=== PATIENT | female | born 1990 | race Caucasian/White ===

== ENCOUNTER 2018-09-05 08:33 | Inpatient (IN) | payer BC ==
[2018-09-05] MEDS ORDERED: Water For Irrigation,Sterile 1,000 ML Container IRR PRN (15:20)
[2018-09-05] MEDS ORDERED: Ondansetron 4 MG/2 ML SDV IV PRN (15:20)
[2018-09-05] MEDS ORDERED: Tranexamic Acid 1,000 MG in Sodium Chloride 0.9% 100 ML IV PRN (15:20)
[2018-09-05] MEDS ORDERED: Sodium Chloride 0.9% 10 ML Syringe FLUSH PRN (15:20)
[2018-09-05] MEDS ORDERED: Lidocaine 1% 50 ML MDV INJECT PRN (15:20)
[2018-09-05] MEDS ORDERED: Methylergonovine 0.2 MG/1 ML Amp IM PRN (15:20)
[2018-09-05] MEDS ORDERED: Sodium Chloride 0.9% 10 ML SDV IV PRN (15:20)
[2018-09-05] MEDS ORDERED: Ampicillin 2 GM in Sodium Chloride 0.9% 100 ML IV ONE (15:20)
[2018-09-05] MEDS ORDERED: Nalbuphine 10 MG/1 ML Vial IVPUSH PRN (15:20)
[2018-09-05] MEDS ORDERED: Carboprost Tromethamine 250 MCG/1 ML Amp IM PRN (15:20)
[2018-09-05] MEDS ORDERED: Butorphanol 1 MG/ML SDV IVPUSH PRN (15:20)
[2018-09-05] MEDS ORDERED: Sodium Chloride 0.9% 2.5 ML Syringe FLUSH PRN (15:20)
[2018-09-05] MEDS ORDERED: Terbutaline 1 MG/ML SDV SUBCUT PRN (15:20)
[2018-09-05] MEDS ORDERED: Misoprostol 200 MCG Tab PO PRN (15:20)
[2018-09-05] MEDS ORDERED: Oxytocin/0.9 % Sodium Chloride 30 UNIT/500 ML BAG IV SCH ×2 (15:30)
[2018-09-05] MEDS: Lactated Ringers 1,000 ML IV SCH ×2 (16:00→18:15)
[2018-09-05] MEDS: Misoprostol 25 MCG (1/4 of 100 MCG) Tab PO PRN ×2 (17:03→21:14)
[2018-09-05] MEDS: Misoprostol 25 MCG (1/4 of 100 MCG) Tab VAG PRN ×2 (17:04→21:15)
--- NOTE | 2018-09-05 17:29 | PCM.LDHP ---
L&D History of Present Illness - General Date of Service: 09/05/18 Admit Problem/Dx: Patient Status Order with Admit Dx/Problem 09/05/18 15:20 Patient Status [ADT] Routine Admission Diagnosis/Problem Admission Diagnosis/Problem - planned 09/05/18 17:23 28 yo EDC 09/04/2018 40 1/7wk O+, R-equivocal, GBS pos. IOL for term. Source of Information: Patient History Limitations: Reports: No Limitations - History of Present Illness Improves with: Reports: None Worsens with: Reports: None Associated Symptoms: Reports: N - Related Data Allergies/Adverse Reactions: Allergies Allergy/AdvReac Type Severity Reaction Status Date / Time No Known Allergies Allergy Verified 09/05/18 15:19 Social & Family History - Tobacco Use Smoking Status *Q: Former Smoker Used Tobacco, but Quit: No Tobacco Use Comment: Stopped December 2016 Second Hand Smoke Exposure: No - Caffeine Use Caffeine Use: Reports: Coffee - Recreational Drug Use Recreational Drug Use: No H&P Review of Systems - Review of Systems: Review Of Systems: See Below General: Reports: No Symptoms HEENT: Reports: No Symptoms Pulmonary: Reports: No Symptoms Cardiovascular: Reports: No Symptoms Gastrointestinal: Reports: No Symptoms Genitourinary: Reports: No Symptoms Musculoskeletal: Reports: No Symptoms Skin: Reports: No Symptoms Psychiatric: Reports: No Symptoms Neurological: Reports: No Symptoms Hematologic/Lymphatic: Reports: No Symptoms Immunologic: Reports: No Symptoms L&D Exam - Exam Exam: See Below - Vital Signs Weight: 134.717 kg - OB Specific Contraction Intensity: Mild Movement: Active Heart Tones: Present Heart Tones per Min: 145 Heart Rate (FHR) Variability: Moderate (6-25 bmp) Presentation: Vertex - Amador Score Amador Score Cervix Position: Posterior Amador Score Consistency: Medium Amador Score Effacement: 51-70% Amador Score Dilation: 1-2 cm Amador Score 's Station: -2 Amador Score Total: 5 - Exam General: Alert, Oriented, Cooperative, Mild Distress HEENT: Hearing Intact Lungs: Normal Respiratory Effort GI/Abdominal Exam: Soft, Non-Tender Rectal Exam: Deferred Genitourinary: Normal external exam, Normal bimanual exam, Cervical dilitation Back Exam: Normal Inspection, Full Range of Motion Extremities: Normal Inspection, Normal Range of Motion, Non-Tender, No Pedal Edema Skin: Warm Neurological: Cranial Nerves Intact, Reflexes Equal Bilateral, Strength Equal Bilateral, Normal Speech, Normal Tone, Sensation Intact Psychiatric: Alert, Normal Affect, Normal Mood - Patient Data Lab Results Last 24 hrs: Laboratory Results - last 24 hr 09/05/18 Range/Units 15:41 WBC 14.83 H (4.0-11.0) K/uL RBC 4.52 (4.30-5.90) M/uL Hgb 13.1 (12.0-16.0) g/dL Hct 39.3 (36.0-46.0) % MCV 86.9 (80.0-98.0) fL MCH 29.0 (27.0-32.0) pg MCHC 33.3 (31.0-37.0) g/dL RDW Std Deviation 42.7 (28.0-62.0) fl RDW Coeff of Claudia 14 (11.0-15.0) % Plt Count 228 (150-400) K/uL MPV 10.50 (7.40-12.00) fL Nucleated RBC % 0.0 /100WBC Nucleated RBCs # 0 K/uL Result Diagrams: 09/05/18 15:41 - Problem List (1) Supervision of normal IUP (intrauterine ) in primigravida SNOMED Code(s): 85172228, 551276327, 065983661, 266627922 ICD Code: Z34.00 - ENCNTR FOR SUPRVSN OF NORMAL FIRST , UNSP TRIMESTER Status: Acute Priority: High Current Visit: Yes Qualifiers: Trimester: third trimester Qualified Code(s): Z34.03 - Encounter for supervision of normal first , third trimester Problem List Initiated/Reviewed/Updated: Yes Orders Last 24hrs: Active Orders 24 hr Category Date Time Status Patient Status [ADT] Routine ADT 09/05/18 15:20 Active Communication Order [RC] ASDIRECTED Care 09/05/18 15:20 Active Communication Order [RC] ASDIRECTED Care 09/05/18 15:20 Active Communication Order [RC] ASDIRECTED Care 09/05/18 15:20 Active Heart Tones [RC] CONTINUOUS Care 09/05/18 15:20 Active Non Stress Test [RC] PER UNIT ROUTINE Care 09/05/18 15:20 Active May Shower [RC] ASDIRECTED Care 09/05/18 15:20 Active Notify Provider [RC] PRN Care 09/05/18 15:20 Active Notify Provider [RC] PRN Care 09/05/18 15:20 Active Notify Provider [RC] PRN Care 09/05/18 15:20 Active Notify Provider [RC] STAT Care 09/05/18 15:20 Active Up ad Steph [RC] ASDIRECTED Care 09/05/18 15:20 Active Vaginal Exam [RC] PRN Care 09/05/18 15:20 Active Vital Signs [RC] PER UNIT ROUTINE Care 09/05/18 15:20 Active Regular Diet [DIET] Diet 09/05/18 Dinner Active TYPE AND SCREEN [BBK] Routine Lab 09/05/18 15:41 Received Butorphanol [Stadol] Med 09/05/18 15:20 Active 1 mg IVPUSH Q1H PRN Carboprost Tromethamine [Hemabate DS] Med 09/05/18 15:20 Active 250 mcg IM ASDIRECTED PRN Lactated Ringers [Ringers, Lactated] 1,000 ml Med 09/05/18 15:30 Active IV ASDIRECTED Lidocaine 1% [Xylocaine 1%] Med 09/05/18 15:20 Active 50 ml INJECT ONETIME PRN Methylergonovine [Methergine] Med 09/05/18 15:20 Active 0.2 mg IM ASDIRECTED PRN Nalbuphine [Nubain] Med 09/05/18 15:20 Active 10 mg IVPUSH Q1H PRN Ondansetron [Zofran] Med 09/05/18 15:20 Active 4 mg IV Q4H PRN Oxytocin/0.9 % Sodium Chloride [Oxytocin 30 Unit/500 ML Med 09/05/18 15:30 Active -NS] 30 unit in 500 ml IV TITRATE Oxytocin/0.9 % Sodium Chloride [Oxytocin 30 Unit/500 ML Med 09/05/18 15:30 Active -NS] 30 unit in 500 ml IV TITRATE Sodium Chloride 0.9% [Normal Saline] Med 09/05/18 15:20 Active 10 ml IV ASDIRECTED PRN Sodium Chloride 0.9% [Saline Flush] Med 09/05/18 15:20 Active 10 ml FLUSH ASDIRECTED PRN Sodium Chloride 0.9% [Saline Flush] Med 09/05/18 15:20 Active 2.5 ml FLUSH ASDIRECTED PRN Terbutaline [Brethine] Med 09/05/18 15:20 Active 0.25 mg SUBCUT ASDIRECTED PRN Tranexamic Acid [Cyklokapron] 1,000 mg Med 09/05/18 15:20 Active Sodium Chloride 0.9% [Normal Saline] 100 ml IV ONETIME Water For Irrigation,Sterile [Sterile Water for Med 09/05/18 15:20 Active Irrigation] 1,000 ml IRR ASDIRECTED PRN miSOPROStol [Cytotec] Med 09/05/18 15:20 Active 200 mcg PO ONETIME PRN miSOPROStol [Cytotec] Med 09/05/18 15:20 Active 25 mcg PO Q4HR PRN miSOPROStol [Cytotec] Med 09/05/18 15:20 Active 25 mcg VAG Q4H PRN Scalp Electrode [WOMSER] Per Unit Routine Oth 09/05/18 15:20 Ordered Medication Administration Instruction [OM.PC] Q3H Oth 09/05/18 15:30 Ordered Peripheral IV Insertion Adult [OM.PC] Routine Oth 09/05/18 15:20 Ordered Resuscitation Status Routine Resus Stat 09/05/18 15:20 Ordered Medication Orders Butorphanol Tartrate (Stadol) 1 mg IVPUSH Q1H PRN PRN Reason: Pain Carboprost Tromethamine (Hemabate Ds) 250 mcg IM ASDIRECTED PRN PRN Reason: Post Hemorrhage Lactated Ringer's (Ringers, Lactated) 1,000 mls @ 150 mls/hr IV ASDIRECTED [facility] Last Admin: 09/05/18 16:00 Dose: 150 mls/hr Oxytocin/Sodium Chloride (Oxytocin 30 Unit/500 Ml-Ns) 30 unit in 500 mls @ 500 mls/hr IV TITRATE [facility] Oxytocin/Sodium Chloride (Oxytocin 30 Unit/500 Ml-Ns) 30 unit in 500 mls @ 2 mls/hr IV TITRATE [facility]; Protocol Tranexamic Acid 1,000 mg/ (Sodium Chloride) 110 mls @ 660 mls/hr IV ONETIME PRN PRN Reason: Bleeding Lidocaine HCl (Xylocaine 1%) 50 ml INJECT ONETIME PRN PRN Reason: Laceration repair Methylergonovine Maleate (Methergine) 0.2 mg IM ASDIRECTED PRN PRN Reason: Post Hemorrhage Misoprostol (Cytotec) 200 mcg PO ONETIME PRN PRN Reason: Post Hemorrhage Misoprostol (Cytotec) 25 mcg PO Q4HR PRN PRN Reason: Cervical Ripening Last Admin: 09/05/18 17:03 Dose: 25 mcg Misoprostol (Cytotec) 25 mcg VAG Q4H PRN PRN Reason: Cervical Ripening Last Admin: 09/05/18 17:04 Dose: 25 mcg Nalbuphine HCl (Nubain) 10 mg IVPUSH Q1H PRN PRN Reason: Pain (severe 7-10) Ondansetron HCl (Zofran) 4 mg IV Q4H PRN PRN Reason: Nausea/Vomiting Sodium Chloride (Saline Flush) 10 ml FLUSH ASDIRECTED PRN PRN Reason: Keep Vein Open Sodium Chloride (Saline Flush) 2.5 ml FLUSH ASDIRECTED PRN PRN Reason: Keep Vein Open Sodium Chloride (Normal Saline) 10 ml IV ASDIRECTED PRN PRN Reason: IV Use Sterile Water (Sterile Water For Irrigation) 1,000 ml IRR ASDIRECTED PRN PRN Reason: delivery Terbutaline Sulfate (Brethine) 0.25 mg SUBCUT ASDIRECTED PRN PRN Reason: Tacysystole Assessment/Plan Comment:: IOL A: 28 yo EDC 09/04/2018 40 1/7wk O+, R-equivocal, GBS pos. IOL for term. P: Admit, Amp for GBS pos, Cytotec to pitocin, anticipate , DR Murcia updated
[2018-09-05] MEDS: Ampicillin 1 GM in Sodium Chloride 0.9% 50 ML IV SCH (21:14)
[2018-09-06] MEDS: Ampicillin 1 GM in Sodium Chloride 0.9% 50 ML IV SCH ×2 (01:38→05:16)
[2018-09-06] MEDS: Lactated Ringers 1,000 ML IV SCH ×3 (05:16→18:12)
[2018-09-06] MEDS ORDERED: Octyl 2-Cyanoacrylate 1 Tube ONE (07:53)
[2018-09-06] MEDS ORDERED: ceFAZolin 1 GM Vial ONE (08:13)
--- NOTE | 2018-09-06 08:32 | PCM.PREANE ---
Preanesthetic Assessment - Anesthesia/Transfusion/Family Hx Anesthesia History: No Prior Anesthesia Family History of Anesthesia Reaction: No - Review of Systems General: No Symptoms Pulmonary: No Symptoms Gastrointestinal: Other (obesity) - Physical Assessment NPO Status Date: 09/06/18 NPO Status Time: 04:00 Pulse: 75 Respiratory Rate: 18 Height: 1.75 m Weight: 134.717 kg ASA Class: 2E Mental Status: Alert & Oriented x3 Airway Class: Mallampati = 2 ROM/Head Extension: Full Lungs: Clear to Auscultation Cardiovascular: Regular Rate - Lab Values: Laboratory Last Values WBC 14.83 K/uL (4.0-11.0) H 09/05/18 15:41 RBC 4.52 M/uL (4.30-5.90) 09/05/18 15:41 Hgb 13.1 g/dL (12.0-16.0) 09/05/18 15:41 Hct 39.3 % (36.0-46.0) 09/05/18 15:41 MCV 86.9 fL (80.0-98.0) 09/05/18 15:41 MCH 29.0 pg (27.0-32.0) 09/05/18 15:41 MCHC 33.3 g/dL (31.0-37.0) 09/05/18 15:41 RDW Std Deviation 42.7 fl (28.0-62.0) 09/05/18 15:41 RDW Coeff of Claudia 14 % (11.0-15.0) 09/05/18 15:41 Plt Count 228 K/uL (150-400) 09/05/18 15:41 MPV 10.50 fL (7.40-12.00) 09/05/18 15:41 Nucleated RBC % 0.0 /100WBC 09/05/18 15:41 Nucleated RBCs # 0 K/uL 09/05/18 15:41 Blood Type O POSITIVE 09/05/18 15:41 Antibody Screen NEGATIVE 09/05/18 15:41 - Allergies Allergies/Adverse Reactions: Allergies Allergy/AdvReac Type Severity Reaction Status Date / Time No Known Allergies Allergy Verified 09/05/18 15:19 - Acknowledgements Anesthesia Type Planned: Spinal Pt an Appropriate Candidate for the Planned Anesthesia: Yes Pt/Guardian Understands and Agrees with Anesthesia Plan: Yes PreAnesthesia Questionnaire HEENT History: Reports: Other (See Below) Other HEENT History: orthodontic 2007 PRACTICAL NURSE History: Reports: - Past Surgical History HEENT Surgical History: Reports: Visual Other HEENT Surgeries/Procedures: lasik 2017 - SUBSTANCE USE Smoking Status *Q: Former Smoker Tobacco Use Within Last Twelve Months: Cigarettes Second Hand Smoke Exposure: No Recreational Drug Use History: No - CURRENT (IN HOUSE) MEDS Current Meds: Current Medications Butorphanol Tartrate (Stadol) 1 mg IVPUSH Q1H PRN PRN Reason: Pain Carboprost Tromethamine (Hemabate Ds) 250 mcg IM ASDIRECTED PRN PRN Reason: Post Hemorrhage Lactated Ringer's (Ringers, Lactated) 1,000 mls @ 150 mls/hr IV ASDIRECTED [facility] Last Admin: 09/06/18 07:25 Dose: 150 mls/hr Oxytocin/Sodium Chloride (Oxytocin 30 Unit/500 Ml-Ns) 30 unit in 500 mls @ 500 mls/hr IV TITRATE [facility] Oxytocin/Sodium Chloride (Oxytocin 30 Unit/500 Ml-Ns) 30 unit in 500 mls @ 2 mls/hr IV TITRATE [facility]; Protocol Last Titration: 09/06/18 05:30 Dose: 0 munits/min, 0 mls/hr Tranexamic Acid 1,000 mg/ (Sodium Chloride) 110 mls @ 660 mls/hr IV ONETIME PRN PRN Reason: Bleeding Ampicillin Sodium 1 gm/ Sodium (Chloride) 50 mls @ 100 mls/hr IV Q4H [facility] Last Admin: 09/06/18 05:16 Dose: 100 mls/hr Lidocaine HCl (Xylocaine 1%) 50 ml INJECT ONETIME PRN PRN Reason: Laceration repair Methylergonovine Maleate (Methergine) 0.2 mg IM ASDIRECTED PRN PRN Reason: Post Hemorrhage Misoprostol (Cytotec) 200 mcg PO ONETIME PRN PRN Reason: Post Hemorrhage Misoprostol (Cytotec) 25 mcg PO Q4HR PRN PRN Reason: Cervical Ripening Last Admin: 09/05/18 21:14 Dose: 25 mcg Misoprostol (Cytotec) 25 mcg VAG Q4H PRN PRN Reason: Cervical Ripening Last Admin: 09/05/18 21:15 Dose: 25 mcg Nalbuphine HCl (Nubain) 10 mg IVPUSH Q1H PRN PRN Reason: Pain (severe 7-10) Ondansetron HCl (Zofran) 4 mg IV Q4H PRN PRN Reason: Nausea/Vomiting Sodium Chloride (Saline Flush) 10 ml FLUSH ASDIRECTED PRN PRN Reason: Keep Vein Open Sodium Chloride (Saline Flush) 2.5 ml FLUSH ASDIRECTED PRN PRN Reason: Keep Vein Open Sodium Chloride (Normal Saline) 10 ml IV ASDIRECTED PRN PRN Reason: IV Use Sterile Water (Sterile Water For Irrigation) 1,000 ml IRR ASDIRECTED PRN PRN Reason: delivery Terbutaline Sulfate (Brethine) 0.25 mg SUBCUT ASDIRECTED PRN PRN Reason: Tacysystole Discontinued Medications Cefazolin Sodium (Ancef) Confirm Administered Dose 2 gm .ROUTE .STK-MED ONE Stop: 09/06/18 08:14 Ampicillin Sodium 2 gm/ Sodium (Chloride) 100 mls @ 200 mls/hr IV ONETIME ONE Stop: 09/05/18 15:49 Last Admin: 09/05/18 17:19 Dose: 200 mls/hr Octyl Cyanoacrylate (Dermabond Advance) Confirm Administered Dose 1 applic .ROUTE .STK-MED ONE Stop: 09/06/18 07:54
[2018-09-06] MEDS ORDERED: Ondansetron 4 MG/2 ML SDV IVPUSH PRN (08:51)
[2018-09-06] MEDS ORDERED: diphenhydrAMINE 50 MG/ML SDV IVPUSH PRN (08:51)
[2018-09-06] MEDS ORDERED: Lanolin 100% Cream 7 GM Tube TOP PRN (08:51)
[2018-09-06] MEDS ORDERED: Bisacodyl 10 MG Supp RECTAL PRN (08:51)
[2018-09-06] MEDS ORDERED: Ibuprofen 800 MG Tab PO PRN (08:51)
[2018-09-06] MEDS ORDERED: Acetaminophen/oxyCODONE 325-5 MG Tab PO PRN (08:51)
[2018-09-06] MEDS ORDERED: Oxytocin 10 Units/1 ML SDV ONE (08:53)
[2018-09-06] MEDS ORDERED: Dexamethasone 4 MG/ML 5 ML MDV ONE (08:54)
--- NOTE | 2018-09-06 08:54 | PCM.OPNOTE ---
- General Post-Op/Procedure Note Date of Surgery/Procedure: 09/06/18 Operative Procedure(s): Primary C/section. Pre Op Diagnosis: IUP40 wks not reasuring FAR Post-Op Diagnosis: Same Anesthesia Technique: Spinal Primary Surgeon: Eliud Murcia Supply Clerk: Pilar Guy EBL in mLs: 650 Complications: None Condition: Good
[2018-09-06] MEDS ORDERED: Lactated Ringers 1,000 ML IV SCH (09:00)
--- NOTE | 2018-09-06 09:52 | PCM.POSTAN ---
POST ANESTHESIA ASSESSMENT - MENTAL STATUS Mental Status: Alert - RESPIRATORY Respiratory Status: Respiratory Rate WNL - CARDIOVASCULAR CV Status: Pulse Rate WNL, Blood Pressure Stable - GASTROINTESTINAL GI Status: No Symptoms - POST OP HYDRATION Hydration Status: Adequate & Stable
--- NOTE | 2018-09-06 11:03 | OR ---
SURGEON: Eliud Murcia MD DATE OF PROCEDURE: PREOPERATIVE DIAGNOSIS: Intrauterine , 40 plus weeks, non-reassuring heart rate. POSTOPERATIVE DIAGNOSIS: Intrauterine , 40 plus weeks, non-reassuring heart rate. OPERATION PERFORMED: Primary low-transverse section. PRIMARY SURGEON: Eliud Murcia MD. SUPERVISOR FILES: Pilar Guy CNM. ANESTHESIA: Spinal, Chas Abdalla and Dr. Brewer. ESTIMATED BLOOD LOSS: 650 mL. COMPLICATIONS: None. FINDINGS: Male fetus. Clear amniotic fluids. One nuchal cord. score reported to be 8 and 9. Normal uterus, tubes, and ovaries. INDICATION FOR SURGERY: This patient is 28. She is primigravida. She is followed in our clinic primarily by our nurse bindery chief. She has no complication prenatally. She is 40 plus. She is admitted for elective induction. She progressed to 4 cm and intact. She is on Pitocin. The patient started having flat variability and nonreactive fetus. She is remote from delivery. A decision was made to do primary low-transverse section. PROCEDURE IN DETAIL: The patient was brought to the OR, properly identified, and after adequate level of spinal anesthesia with a Smith catheter in the bladder, time-out was taken. The patient was prepped and draped in sterile fashion as usual and then low transverse Pfannenstiel skin incision was done. Essence's fascia and rectus fascia were opened in the direction of the incision. The 2 recti muscles were . Peritoneal cavity was entered. Bladder flap was raised in the usual manner pushing the bladder away from the lower uterine segment. Low transverse uterine incision was done and extended manually with the hand, fetus was delivered, was in vertex position. Clear amniotic fluid and 1 nuchal cord. The fetus cried immediately and handed to the director of nursing for resuscitation . The score later on reported to be 8 and 9. The weight is not available. The placenta delivered spontaneous, complete, and intact. Repair of the lower uterine segment was done with 2-0 Vicryl continuous interlocking in 2 layers. Reperitonealization done with 3-0 Vicryl continuous and then the peritoneal cavity evacuated completely from all blood and blood clot with 3-0 Vicryl continuous. The rectus fascia was closed with #1 PDS double strand continuous. Essence's fascia with 3-0 Vicryl continuous. Skin closed with Stratafix in a subcuticular fashion and Dermabond. Instrument and sponge counts were correct. The patient tolerated the procedure well and went to recovery room in stable general condition. TASHIA PEDERSEN /[id number]
[2018-09-06] MEDS: Ketorolac 30 MG/ML SDV IVPUSH SCH ×2 (14:34→20:48)
[2018-09-06] MEDS: Docusate Sodium 100 MG Cap PO SCH ×2 (20:47→20:48)
[2018-09-07] MEDS: Lactated Ringers 1,000 ML IV SCH (00:14)
[2018-09-07] MEDS: Ketorolac 30 MG/ML SDV IVPUSH SCH ×3 (02:53→08:45)
[2018-09-07] MEDS: Ampicillin 1 GM in Sodium Chloride 0.9% 50 ML IV SCH ×2 (08:12→08:13)
--- NOTE | 2018-09-07 08:16 | PCM.PNPP ---
- General Info Date of Service: 09/07/18 Admission Dx/Problem (Free Text): Patient Status Order with Admit Dx/Problem 09/05/18 15:20 Patient Status [ADT] Routine Admission Diagnosis/Problem Admission Diagnosis/Problem - planned 09/05/18 17:23 28 yo EDC 09/04/2018 40 1/7wk O+, R-equivocal, GBS pos. IOL for term. Functional Status: Reports: Pain Controlled, Tolerating Diet, Ambulating, Urinating - Review of Systems General: Reports: No Symptoms HEENT: Reports: No Symptoms Pulmonary: Reports: No Symptoms Cardiovascular: Reports: No Symptoms Gastrointestinal: Reports: No Symptoms Genitourinary: Reports: No Symptoms Musculoskeletal: Reports: No Symptoms Skin: Reports: No Symptoms Neurological: Reports: No Symptoms Psychiatric: Reports: No Symptoms - General Info Date of Service: 09/07/18 - Patient Data Vital Signs - Most Recent: Last Vital Signs Temp 36.5 C 09/07/18 07:10 Pulse 67 09/07/18 07:10 Resp 18 09/07/18 07:10 BP 142/86 H 09/07/18 07:10 Pulse Ox 99 09/07/18 07:10 Weight - Most Recent: 134.717 kg I&O - Last 24 Hours: Intake & Output 09/06/18 09/07/18 09/07/18 22:59 06:59 14:59 Intake Total 560 Output Total 520 1400 Balance 40 -1400 Lab Results - Last 24 Hours: Laboratory Results - last 24 hr 09/07/18 Range/Units 05:33 Hgb 11.4 L (12.0-16.0) g/dL Hct 34.4 L (36.0-46.0) % Med Orders - Current: Current Medications Bisacodyl (Dulcolax) 10 mg RECTAL ONETIME PRN PRN Reason: Constipation Butorphanol Tartrate (Stadol) 1 mg IVPUSH Q1H PRN PRN Reason: Pain Carboprost Tromethamine (Hemabate Ds) 250 mcg IM ASDIRECTED PRN PRN Reason: Post Hemorrhage Diphenhydramine HCl (Benadryl) 25 mg IVPUSH Q6H PRN PRN Reason: Itching or Nausea Docusate Sodium (Colace) 100 mg PO BID [facility] Last Admin: 09/06/18 20:48 Dose: 100 mg Emollient Ointment (Lansinoh Hpa) 0 gm TOP ASDIRECTED PRN PRN Reason: Sore Nipples Last Admin: 09/06/18 16:30 Dose: 1 applic Lactated Ringer's (Ringers, Lactated) 1,000 mls @ 150 mls/hr IV ASDIRECTED [facility] Last Admin: 09/07/18 00:14 Dose: 150 mls/hr Oxytocin/Sodium Chloride (Oxytocin 30 Unit/500 Ml-Ns) 30 unit in 500 mls @ 500 mls/hr IV TITRATE [facility] Oxytocin/Sodium Chloride (Oxytocin 30 Unit/500 Ml-Ns) 30 unit in 500 mls @ 2 mls/hr IV TITRATE [facility]; Protocol Last Titration: 09/06/18 05:30 Dose: 0 munits/min, 0 mls/hr Tranexamic Acid 1,000 mg/ (Sodium Chloride) 110 mls @ 660 mls/hr IV ONETIME PRN PRN Reason: Bleeding Ampicillin Sodium 1 gm/ Sodium (Chloride) 50 mls @ 100 mls/hr IV Q4H [facility] Last Admin: 09/07/18 08:13 Dose: Not Given Lactated Ringer's (Ringers, Lactated) 1,000 mls @ 125 mls/hr IV ASDIRECTED [facility] Ibuprofen (Motrin) 800 mg PO Q8H PRN PRN Reason: mild pain or fever Ketorolac Tromethamine (Toradol) 30 mg IVPUSH Q6H [facility] Stop: 09/07/18 09:01 Last Admin: 09/07/18 08:13 Dose: Not Given Lidocaine HCl (Xylocaine 1%) 50 ml INJECT ONETIME PRN PRN Reason: Laceration repair Methylergonovine Maleate (Methergine) 0.2 mg IM ASDIRECTED PRN PRN Reason: Post Hemorrhage Misoprostol (Cytotec) 200 mcg PO ONETIME PRN PRN Reason: Post Hemorrhage Misoprostol (Cytotec) 25 mcg PO Q4HR PRN PRN Reason: Cervical Ripening Last Admin: 09/05/18 21:14 Dose: 25 mcg Misoprostol (Cytotec) 25 mcg VAG Q4H PRN PRN Reason: Cervical Ripening Last Admin: 09/05/18 21:15 Dose: 25 mcg Nalbuphine HCl (Nubain) 10 mg IVPUSH Q1H PRN PRN Reason: Pain (severe 7-10) Ondansetron HCl (Zofran) 4 mg IV Q4H PRN PRN Reason: Nausea/Vomiting Last Admin: 09/06/18 16:30 Dose: 4 mg Ondansetron HCl (Zofran) 4 mg IVPUSH Q4H PRN PRN Reason: Nausea/Vomiting Oxycodone/Acetaminophen (Percocet 325-5 Mg) 1 tab PO Q4H PRN PRN Reason: Pain (moderate 4-6) Oxycodone/Acetaminophen (Percocet 325-5 Mg) 2 tab PO Q4H PRN PRN Reason: Pain (moderate 4-6) Sodium Chloride (Saline Flush) 10 ml FLUSH ASDIRECTED PRN PRN Reason: Keep Vein Open Sodium Chloride (Saline Flush) 2.5 ml FLUSH ASDIRECTED PRN PRN Reason: Keep Vein Open Sodium Chloride (Normal Saline) 10 ml IV ASDIRECTED PRN PRN Reason: IV Use Sterile Water (Sterile Water For Irrigation) 1,000 ml IRR ASDIRECTED PRN PRN Reason: delivery Terbutaline Sulfate (Brethine) 0.25 mg SUBCUT ASDIRECTED PRN PRN Reason: Tacysystole Discontinued Medications Cefazolin Sodium (Ancef) Confirm Administered Dose 2 gm .ROUTE .STK-MED ONE Stop: 09/06/18 08:14 Dexamethasone (Dexamethasone) Confirm Administered Dose 20 mg .ROUTE .STK-MED ONE Stop: 09/06/18 08:55 Ampicillin Sodium 2 gm/ Sodium (Chloride) 100 mls @ 200 mls/hr IV ONETIME ONE Stop: 09/05/18 15:49 Last Admin: 09/05/18 17:19 Dose: 200 mls/hr Ibuprofen (Motrin) 800 mg PO Q8H PRN PRN Reason: mild pain or fever Octyl Cyanoacrylate (Dermabond Advance) Confirm Administered Dose 1 applic .ROUTE .STK-MED ONE Stop: 09/06/18 07:54 Last Admin: 09/07/18 08:12 Dose: Not Given Oxytocin (Pitocin) Confirm Administered Dose 10 unit .ROUTE .STK-MED ONE Stop: 09/06/18 08:54 - Infant Interaction Infant Disposition, : [place] in Room with Family Infant Interaction: Holding Infant Feeding: Breastfed ; Nursed Well, Continues to Breastfeed Support Person: - Recovery Exam Fundal Tone: Firm Fundal Level: At Umbilicus Fundal Placement: Midline Lochia Amount: Scant Lochia Color: Rubra/Red Perineum Description: Intact, Minimal Bruising/Swelling Bladder Status: Indwelling Catheter in Place Urinary Elimination: Indwelling Catheter - Exam General: Alert, Oriented, Cooperative, No Acute Distress Lungs: Normal Respiratory Effort GI/Abdominal Exam: Soft, Non-Tender, No Distention, Pelvis Stable Extremities: Normal Range of Motion, Non-Tender Skin: Warm, Dry, Intact Wound/Incisions: Healing Well, Dressing Dry and Intact Neurological: No New Focal Deficit, Normal Speech, Normal Tone, Strength Equal Bilateral Psy/Mental Status: Alert, Normal Affect, Normal Mood - Problem List & Annotations (1) Supervision of normal IUP (intrauterine ) in primigravida SNOMED Code(s): 14601083, 586007440, 977959319, 936128376 Code(s): Z34.00 - ENCNTR FOR SUPRVSN OF NORMAL FIRST , UNSP TRIMESTER Status: Acute Priority: High Current Visit: Yes Qualifiers: Trimester: third trimester Qualified Code(s): Z34.03 - Encounter for supervision of normal first , third trimester (2) delivery delivered SNOMED Code(s): 566383356 Code(s): O82 - ENCOUNTER FOR DELIVERY WITHOUT INDICATION Status: Acute Priority: High Current Visit: Yes - Problem List Review Problem List Initiated/Reviewed/Updated: Yes - Plan Plan:: IOL A: 28 yo EDC 09/04/2018 40 1/7wk O+, R-equivocal, GBS pos. IOL for term. P: Admit, Amp for GBS pos, Cytotec to pitocin, anticipate , DR Murcia updated PPD#1 A: VSS, AF, FF -2bu, lochia scant, abd dressing dry/intact. Denies strong pain. BF well P: Continue pp POC
[2018-09-07] MEDS: Docusate Sodium 100 MG Cap PO SCH ×2 (08:45→20:54)
--- NOTE | 2018-09-07 11:30 | PCM48HPAN ---
Post Anesthesia Note - EVALUATION WITHIN 48HRS OF ANESTHETIC Vital Signs in Normal Range: Yes Patient Participated in Evaluation: Yes Respiratory Function Stable: Yes Airway Patent: Yes Cardiovascular Function Stable: Yes Hydration Status Stable: Yes Pain Control Satisfactory: Yes Nausea and Vomiting Control Satisfactory: Yes Mental Status Recovered: Yes Pulse Rate: 75 Resp Rate: 16 - COMMENTS/OBSERVATIONS Free Text/Narrative:: no anesthesia problems
[2018-09-07] MEDS: Acetaminophen/oxyCODONE 325-5 MG Tab PO PRN ×2 (13:25→20:55)
[2018-09-07] MEDS: Ibuprofen 800 MG Tab PO PRN (17:49)
--- NOTE | 2018-09-08 08:24 | PCM.PNPP ---
- General Info Date of Service: 09/08/18 Functional Status: Reports: Pain Controlled - Review of Systems General: Reports: No Symptoms HEENT: Reports: No Symptoms Pulmonary: Reports: No Symptoms Cardiovascular: Reports: No Symptoms Gastrointestinal: Reports: No Symptoms Genitourinary: Reports: No Symptoms Musculoskeletal: Reports: No Symptoms Skin: Reports: No Symptoms Neurological: Reports: No Symptoms Psychiatric: Reports: No Symptoms - General Info Date of Service: 09/08/18 - Patient Data Vital Signs - Most Recent: Last Vital Signs Temp 36.8 C 09/08/18 07:19 Pulse 87 09/08/18 07:19 Resp 14 09/08/18 07:19 BP 122/96 H 09/08/18 07:19 Pulse Ox 95 09/08/18 07:19 Weight - Most Recent: 134.717 kg Med Orders - Current: Current Medications Bisacodyl (Dulcolax) 10 mg RECTAL ONETIME PRN PRN Reason: Constipation Butorphanol Tartrate (Stadol) 1 mg IVPUSH Q1H PRN PRN Reason: Pain Carboprost Tromethamine (Hemabate Ds) 250 mcg IM ASDIRECTED PRN PRN Reason: Post Hemorrhage Diphenhydramine HCl (Benadryl) 25 mg IVPUSH Q6H PRN PRN Reason: Itching or Nausea Docusate Sodium (Colace) 100 mg PO BID [facility] Last Admin: 09/07/18 20:54 Dose: 100 mg Emollient Ointment (Lansinoh Hpa) 0 gm TOP ASDIRECTED PRN PRN Reason: Sore Nipples Last Admin: 09/06/18 16:30 Dose: 1 applic Lactated Ringer's (Ringers, Lactated) 1,000 mls @ 150 mls/hr IV ASDIRECTED TALON Last Admin: 09/07/18 00:14 Dose: 150 mls/hr Oxytocin/Sodium Chloride (Oxytocin 30 Unit/500 Ml-Ns) 30 unit in 500 mls @ 500 mls/hr IV TITRATE [facility] Oxytocin/Sodium Chloride (Oxytocin 30 Unit/500 Ml-Ns) 30 unit in 500 mls @ 2 mls/hr IV TITRATE [facility]ALON; Protocol Last Titration: 09/06/18 05:30 Dose: 0 munits/min, 0 mls/hr Tranexamic Acid 1,000 mg/ (Sodium Chloride) 110 mls @ 660 mls/hr IV ONETIME PRN PRN Reason: Bleeding Lactated Ringer's (Ringers, Lactated) 1,000 mls @ 125 mls/hr IV ASDIRECTED [facility] Ibuprofen (Motrin) 800 mg PO Q8H PRN PRN Reason: mild pain or fever Last Admin: 09/07/18 17:49 Dose: 800 mg Lidocaine HCl (Xylocaine 1%) 50 ml INJECT ONETIME PRN PRN Reason: Laceration repair Methylergonovine Maleate (Methergine) 0.2 mg IM ASDIRECTED PRN PRN Reason: Post Hemorrhage Misoprostol (Cytotec) 200 mcg PO ONETIME PRN PRN Reason: Post Hemorrhage Misoprostol (Cytotec) 25 mcg PO Q4HR PRN PRN Reason: Cervical Ripening Last Admin: 09/05/18 21:14 Dose: 25 mcg Misoprostol (Cytotec) 25 mcg VAG Q4H PRN PRN Reason: Cervical Ripening Last Admin: 09/05/18 21:15 Dose: 25 mcg Nalbuphine HCl (Nubain) 10 mg IVPUSH Q1H PRN PRN Reason: Pain (severe 7-10) Ondansetron HCl (Zofran) 4 mg IV Q4H PRN PRN Reason: Nausea/Vomiting Last Admin: 09/06/18 16:30 Dose: 4 mg Ondansetron HCl (Zofran) 4 mg IVPUSH Q4H PRN PRN Reason: Nausea/Vomiting Oxycodone/Acetaminophen (Percocet 325-5 Mg) 1 tab PO Q4H PRN PRN Reason: Pain (moderate 4-6) Last Admin: 09/07/18 20:55 Dose: 1 tab Oxycodone/Acetaminophen (Percocet 325-5 Mg) 2 tab PO Q4H PRN PRN Reason: Pain (moderate 4-6) Last Admin: 09/08/18 03:15 Dose: 2 tab Sodium Chloride (Saline Flush) 10 ml FLUSH ASDIRECTED PRN PRN Reason: Keep Vein Open Sodium Chloride (Saline Flush) 2.5 ml FLUSH ASDIRECTED PRN PRN Reason: Keep Vein Open Sodium Chloride (Normal Saline) 10 ml IV ASDIRECTED PRN PRN Reason: IV Use Sterile Water (Sterile Water For Irrigation) 1,000 ml IRR ASDIRECTED PRN PRN Reason: delivery Terbutaline Sulfate (Brethine) 0.25 mg SUBCUT ASDIRECTED PRN PRN Reason: Tacysystole Discontinued Medications Cefazolin Sodium (Ancef) Confirm Administered Dose 2 gm .ROUTE .STK-MED ONE Stop: 09/06/18 08:14 Dexamethasone (Dexamethasone) Confirm Administered Dose 20 mg .ROUTE .STK-MED ONE Stop: 09/06/18 08:55 Ampicillin Sodium 2 gm/ Sodium (Chloride) 100 mls @ 200 mls/hr IV ONETIME ONE Stop: 09/05/18 15:49 Last Admin: 09/05/18 17:19 Dose: 200 mls/hr Ampicillin Sodium 1 gm/ Sodium (Chloride) 50 mls @ 100 mls/hr IV Q4H [facility] Last Admin: 09/07/18 08:13 Dose: Not Given Ibuprofen (Motrin) 800 mg PO Q8H PRN PRN Reason: mild pain or fever Ketorolac Tromethamine (Toradol) 30 mg IVPUSH Q6H [facility] Stop: 09/07/18 09:01 Last Admin: 09/07/18 08:45 Dose: 30 mg Octyl Cyanoacrylate (Dermabond Advance) Confirm Administered Dose 1 applic .ROUTE .STK-MED ONE Stop: 09/06/18 07:54 Last Admin: 09/07/18 08:12 Dose: Not Given Oxytocin (Pitocin) Confirm Administered Dose 10 unit .ROUTE .STK-MED ONE Stop: 09/06/18 08:54 - Interaction Disposition, : in Room with Family Interaction: Holding Infant Feeding: Breastfed Infant; Nursed Well, Continues to Breastfeed Support Person: - Recovery Exam Fundal Tone: Firm Fundal Level: 1 Fingerbreadths Below Umbilicus Fundal Placement: Midline Lochia Amount: Scant Lochia Color: Rubra/Red Perineum Description: Intact, Minimal Bruising/Swelling Episiotomy/Laceration: None Bladder Status: Voiding Urinary Elimination: Indwelling Catheter - Exam General: Alert, Oriented HEENT: Pupils Equal Neck: Supple Lungs: Clear to Auscultation, Normal Respiratory Effort Cardiovascular: Regular Rate, Regular Rhythm GI/Abdominal Exam: Normal Bowel Sounds, Soft, Non-Tender, No Organomegaly, No Distention, No Abnormal Bruit, No Mass, Pelvis Stable Extremities: Normal Inspection, Normal Range of Motion, Non-Tender, No Pedal Edema, Normal Capillary Refill Skin: Warm, Dry, Intact Wound/Incisions: Healing Well Neurological: No New Focal Deficit Psy/Mental Status: Alert, Normal Affect, Normal Mood - Problem List Review Problem List Initiated/Reviewed/Updated: Yes - My Orders Last 24 Hours: My Active Orders 09/07/18 15:00 Ibuprofen [Motrin] 800 mg PO Q8H PRN - Assessment Assessment:: Status post section postoperative day #1 incision is a clear dry and the patient is going home today with a section instruction - Plan Plan:: IOL A: 28 yo EDC 09/04/2018 40 1/7wk O+, R-equivocal, GBS pos. IOL for term. P: Admit, Amp for GBS pos, Cytotec to pitocin, anticipate , DR Murcia updated PPD#1 A: VSS, AF, FF -2bu, lochia scant, abd dressing dry/intact. Denies strong pain. BF well P: Continue pp POC
[2018-09-08] MEDS: Acetaminophen/oxyCODONE 325-5 MG Tab PO PRN (09:24)
[2018-09-08] MEDS: Docusate Sodium 100 MG Cap PO SCH (09:24)
[2018-09-08] MEDS: Ibuprofen 800 MG Tab PO PRN (09:24)
[2018-09-08] MEDS ORDERED: Measles, Mumps & Rubella Vaccine 0.5 ML SDV SUBCUT ONE (09:45)
== END 2018-09-08 12:40 | disposition home or self-care (01) | DRG 540 ==
LOC: MW.OB 08:33 → OBSVTOIN 09-06 08:33 → MW.OB 09-06 12:00
PROVIDERS: ADMIT Obstetrics & Gynecology; ATTEND Obstetrics & Gynecology
PROC: 10D00Z1 Extraction of Products of Conception, Low, Open Approach (ICD-10-PCS; principal; 2018-09-06)
DX: O48.0 Post-term pregnancy (principal); O99.824 Streptococcus B carrier state complicating childbirth; O76 Abnormality in fetal heart rate and rhythm complicating labor and delivery; Z23 Encounter for immunization; Z3A.40 40 weeks gestation of pregnancy; Z37.0 Single live birth; Z87.891 Personal history of nicotine dependence
CPT/HCPCS: 01961; 36415; 59025; 85014; 85018; 85027; 86850; 86900; 86901; 90471; 90707; A9270-GY; J0290; J0690; J1100; J1885; J2405; J2590; J7030; J7050; J7120

== ENCOUNTER 2020-09-21 08:20 | Inpatient (IN) | payer BC ==
[2020-09-21] MEDS: Lactated Ringers 1,000 ML IV SCH ×2 (08:40→09:31)
--- NOTE | 2020-09-21 08:53 | PCM.LDHP ---
L&D History of Present Illness - General Date of Service: 09/21/20 Admit Problem/Dx: Admission Diagnosis/Problem Admission Diagnosis/Problem Source of Information: Patient History Limitations: Reports: No Limitations - History of Present Illness Improves with: Reports: None Worsens with: Reports: None Associated Symptoms: Reports: N - Related Data Allergies/Adverse Reactions: Allergies Allergy/AdvReac Type Severity Reaction Status Date / Time No Known Allergies Allergy Verified 09/15/20 10:57 Home Medications: Home Meds Calcium Carbonate [Tums] 1 tab.chew CHEW ASDIRECTED PRN 09/15/20 [History] Fish Oil/[place]-3 Fatty Acids [Fish Oil 1,000 MG] 1 tab PO DAILY 09/15/20 [History] Pnv No.95/Ferrous Fum/Folic AC [ Vitamin Tablet] 1 tab PO DAILY 09/15/20 [History] Past Medical History HEENT History: Reports: Other (See Below) Other HEENT History: orthodontic 2007 Cardiovascular History: Reports: None Respiratory History: Reports: None Gastrointestinal History: Reports: GERD Genitourinary History: Reports: None 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: Musculoskeletal History: Reports: None Neurological History: Reports: None Psychiatric History: Reports: None Endocrine/Metabolic History: Reports: Obesity/BMI 30+ Hematologic History: Reports: None Immunologic History: Reports: None Oncologic (Cancer) History: Reports: None Dermatologic History: Reports: None - Past Surgical History HEENT Surgical History: Reports: Visual Other HEENT Surgeries/Procedures: lasik 2016 Social & Family History - Family History Family Medical History: No Pertinent Family History - Tobacco Use Tobacco Use Status *Q: Former Tobacco User Used Tobacco, but Quit: Yes Month/Year Tobacco Last Used: quit 1 year ago - Caffeine Use Caffeine Use: Reports: Coffee - Recreational Drug Use Drug Use in Last 12 Months: No H&P Review of Systems - Review of Systems: Review Of Systems: See Below General: Reports: No Symptoms HEENT: Reports: No Symptoms Pulmonary: Reports: No Symptoms Cardiovascular: Reports: No Symptoms Gastrointestinal: Reports: No Symptoms Genitourinary: Reports: No Symptoms Musculoskeletal: Reports: No Symptoms Skin: Reports: No Symptoms Psychiatric: Reports: No Symptoms Neurological: Reports: No Symptoms Hematologic/Lymphatic: Reports: No Symptoms Immunologic: Reports: No Symptoms L&D Exam - Exam Exam: See Below - Vital Signs Weight: 137.892 kg - OB Specific Contraction Intensity: Mild Movement: Active Heart Tones: Present Presentation: Vertex - Amador Score Amador Score Cervix Position: Posterior Amador Score Consistency: Medium Amador Score Effacement: 31-50% Amador Score Dilation: Closed Amador Score Infant's Station: -3 Amador Score Total: 2 - Exam General: Alert, Oriented HEENT: PERRLA, Conjunctiva Clear, EACs Clear, EOMI, Hearing Intact, Mucosa Moist & [place], Nares Patent, Normal Nasal Septum, Posterior Pharynx Clear, TMs Clear Neck: Supple, Trachea Midline Lungs: Clear to Auscultation, Normal Respiratory Effort Cardiovascular: Regular Rate, Regular Rhythm GI/Abdominal Exam: Normal Bowel Sounds, Soft, Non-Tender, No Organomegaly, No Distention, No Abnormal Bruit, No Mass, Pelvis Stable Rectal Exam: Normal Exam, Normal Rectal Tone Genitourinary: Normal external exam, Normal bimanual exam, Normal speculum exam Back Exam: Normal Inspection, Full Range of Motion Extremities: Normal Inspection, Normal Range of Motion, Non-Tender, No Pedal Edema, Normal Capillary Refill Skin: Warm, Dry, Intact Neurological: Cranial Nerves Intact, Reflexes Equal Bilateral Psychiatric: Alert, Normal Affect, Normal Mood Problem List Initiated/Reviewed/Updated: Yes Assessment/Plan Comment:: Term admitted for elective repeat C/section.
[2020-09-21] MEDS ORDERED: Sodium Chloride 0.9% 10 ML Syringe FLUSH PRN (08:54)
[2020-09-21] MEDS ORDERED: Sodium Chloride 0.9% 2.5 ML Syringe FLUSH PRN (08:54)
[2020-09-21] MEDS ORDERED: Citric Acid/Sodium Citrate Solution 30 ML Cup PO ONE (08:54)
[2020-09-21] MEDS ORDERED: Sodium Chloride 0.9% 10 ML SDV IV PRN (08:54)
[2020-09-21] MEDS ORDERED: Oxytocin/0.9 % Sodium Chloride 30 UNIT/500 ML BAG IV SCH (09:00)
[2020-09-21] MEDS ORDERED: ceFAZolin 2 GM in Premix Bag 1 BAG IV ONE (09:49)
[2020-09-21] MEDS ORDERED: Octyl 2-Cyanoacrylate 1 Tube ONE (09:54)
[2020-09-21] MEDS ORDERED: Morphine PF 10 MG/10 ML SDV ONE (10:09)
[2020-09-21] MEDS ORDERED: fentaNYL 100 MCG/2 ML SDV ONE (10:09)
[2020-09-21] MEDS ORDERED: Ondansetron 4 MG/2 ML SDV ONE (10:33)
[2020-09-21] MEDS ORDERED: Oxytocin 10 Units/1 ML SDV ONE (10:33)
[2020-09-21] MEDS ORDERED: Ketorolac 30 MG/ML SDV ONE (10:33)
[2020-09-21] MEDS ORDERED: Misoprostol 200 MCG Tab RECTAL PRN (10:58)
[2020-09-21] MEDS ORDERED: Tranexamic Acid 1,000 MG in Sodium Chloride 0.9% 100 ML IV PRN (10:58)
[2020-09-21] MEDS ORDERED: Ondansetron 4 MG/2 ML SDV IVPUSH PRN (10:58)
[2020-09-21] MEDS ORDERED: Ibuprofen 800 MG Tab PO PRN (10:58)
[2020-09-21] MEDS ORDERED: Oxytocin 10 Units/1 ML SDV IM PRN (10:58)
[2020-09-21] MEDS ORDERED: diphenhydrAMINE 50 MG/ML SDV IVPUSH PRN (10:58)
[2020-09-21] MEDS ORDERED: Bisacodyl 10 MG Supp RECTAL PRN (10:58)
[2020-09-21] MEDS ORDERED: Acetaminophen/oxyCODONE 325-5 MG Tab PO PRN ×2 (10:58)
[2020-09-21] MEDS ORDERED: Methylergonovine 0.2 MG/1 ML Amp IM PRN (10:58)
[2020-09-21] MEDS ORDERED: Lanolin 100% Cream 7 GM Tube TOP PRN (10:58)
[2020-09-21] MEDS: Ketorolac 30 MG/ML SDV IVPUSH SCH ×3 (11:00→23:00)
[2020-09-21] MEDS ORDERED: Lactated Ringers 1,000 ML IV SCH (11:00)
--- NOTE | 2020-09-21 11:01 | PCM.OPNOTE ---
- General Post-Op/Procedure Note Date of Surgery/Procedure: 09/21/20 Operative Procedure(s): Repeat C/section. Pre Op Diagnosis: IUP 39+ previous C/section Post-Op Diagnosis: Same Anesthesia Technique: Spinal Primary Surgeon: Eliud Murcia Cnc Machine Programmer: Karishma Rodriguez EBL in mLs: 700 Complications: None Condition: Good
--- NOTE | 2020-09-21 12:07 | PCM.PREANE ---
Preanesthetic Assessment - Anesthesia/Transfusion/Family Hx Anesthesia History: No Prior Anesthesia Family History of Anesthesia Reaction: No Transfusion History: No Prior Transfusion(s) - Review of Systems General: No Symptoms Pulmonary: No Symptoms Cardiovascular: No Symptoms Gastrointestinal: No Symptoms Neurological: No Symptoms Other: Reports: None - Physical Assessment NPO Status Date: 09/21/20 NPO Status Time: 00:00 Height: 5 ft 9 in Weight: 313 lb ASA Class: 2 Mental Status: Alert & Oriented x3 Airway Class: Mallampati = 2 Dentition: Reports: Normal Dentition ROM/Head Extension: Full Lungs: Clear to Auscultation, Normal Respiratory Effort Cardiovascular: Regular Rate, Regular Rhythm - Lab Values: Laboratory Last Values WBC 12.95 K/uL (4.0-11.0) H 09/21/20 08:35 RBC 4.55 M/uL (4.30-5.90) 09/21/20 08:35 Hgb 13.1 g/dL (12.0-16.0) 09/21/20 08:35 Hct 38.7 % (36.0-46.0) 09/21/20 08:35 MCV 85.1 fL (80.0-98.0) 09/21/20 08:35 MCH 28.8 pg (27.0-32.0) 09/21/20 08:35 MCHC 33.9 g/dL (31.0-37.0) 09/21/20 08:35 RDW Std Deviation 41.8 fl (28.0-62.0) 09/21/20 08:35 RDW Coeff of Claudia 14 % (11.0-15.0) 09/21/20 08:35 Plt Count 255 K/uL (150-400) 09/21/20 08:35 MPV 10.40 fL (7.40-12.00) 09/21/20 08:35 Nucleated RBC % 0.0 /100WBC 09/21/20 08:35 Nucleated RBCs # 0 K/uL 09/21/20 08:35 Blood Type O POSITIVE 09/21/20 08:35 Antibody Screen NEGATIVE 09/21/20 08:35 - Allergies Allergies/Adverse Reactions: Allergies Allergy/AdvReac Type Severity Reaction Status Date / Time No Known Allergies Allergy Verified 09/21/20 09:06 - Blood Blood Available: Yes Product(s) Available: PRBC - Anesthesia Plan Pre-Op Medication Ordered: None - Acknowledgements Anesthesia Type Planned: Spinal Pt an Appropriate Candidate for the Planned Anesthesia: Yes Alternatives and Risks of Anesthesia Discussed w Pt/Guardian: Yes Pt/Guardian Understands and Agrees with Anesthesia Plan: Yes PreAnesthesia Questionnaire HEENT History: Reports: Other (See Below) Other HEENT History: orthodontic 2007 Cardiovascular History: Reports: None Respiratory History: Reports: None Gastrointestinal History: Reports: GERD Genitourinary History: Reports: None 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: Musculoskeletal History: Reports: None Neurological History: Reports: None Psychiatric History: Reports: None Endocrine/Metabolic History: Reports: Obesity/BMI 30+ Hematologic History: Reports: None Immunologic History: Reports: None Oncologic (Cancer) History: Reports: None Dermatologic History: Reports: None - Past Surgical History Head Surgeries/Procedures: Reports: None HEENT Surgical History: Reports: Visual Other HEENT Surgeries/Procedures: lasik 2017 Cardiovascular Surgical History: Reports: None Respiratory Surgical History: Reports: None GI Surgical History: Reports: None Female Surgical History: Reports: Section Endocrine Surgical History: Reports: None Neurological Surgical History: Reports: None Musculoskeletal Surgical History: Reports: None Oncologic Surgical History: Reports: None Dermatological Surgical History: Reports: None - SUBSTANCE USE Tobacco Use Status *Q: Current Every Day Tobacco User Tobacco Use Within Last Twelve Months: Cigarettes Second Hand Smoke Exposure: No Recreational Drug Use History: No - HOME MEDS Home Medications: Home Meds Calcium Carbonate [Tums] 1 tab.chew CHEW ASDIRECTED PRN 09/15/20 [History] Fish Oil/[place]-3 Fatty Acids [Fish Oil 1,000 MG] 1 tab PO DAILY 09/15/20 [History] Pnv No.95/Ferrous Fum/Folic AC [ Vitamin Tablet] 1 tab PO DAILY 09/15/20 [History] - CURRENT (IN HOUSE) MEDS Current Meds: Current Medications Bisacodyl (Bisacodyl 10 Mg Supp) 10 mg RECTAL ONETIME PRN PRN Reason: Constipation Diphenhydramine HCl (Diphenhydramine 50 Mg/Ml Sdv) 25 mg IVPUSH Q6H PRN PRN Reason: Itching or Nausea Docusate Sodium (Docusate Sodium 100 Mg Cap) 100 mg PO BID TALON Emollient Ointment (Lanolin 100% Cream 7 Gm Tube) 0 gm TOP ASDIRECTED PRN PRN Reason: Sore Nipples Oxytocin/Sodium Chloride (Oxytocin 30 Unit/500 Ml-Ns) 30 unit in 500 mls @ 250 mls/hr IV TITRATE [facility] Lactated Ringer's (Ringers, Lactated) 1,000 mls @ 500 mls/hr IV BOLUS [facility] Last Admin: 09/21/20 09:31 Dose: 500 mls/hr Documented by: Lactated Ringer's (Ringers, Lactated) 1,000 mls @ 125 mls/hr IV ASDIRECTED [facility] Tranexamic Acid 1,000 mg/ (Sodium Chloride) 110 mls @ 660 mls/hr IV ONETIME PRN PRN Reason: Bleeding Ibuprofen (Ibuprofen 800 Mg Tab) 800 mg PO Q8H PRN PRN Reason: mild pain or fever Ketorolac Tromethamine (Ketorolac 30 Mg/Ml Sdv) 30 mg IVPUSH Q6H [facility] Stop: 09/22/20 11:01 Methylergonovine Maleate (Methylergonovine 0.2 Mg/1 Ml Amp) 0.2 mg IM ONETIME PRN PRN Reason: Excessive Vaginal Bleeding Misoprostol (Misoprostol 200 Mcg Tab) 1,000 mcg RECTAL ONETIME PRN PRN Reason: excessive bleeding Ondansetron HCl (Ondansetron 4 Mg/2 Ml Sdv) 4 mg IVPUSH Q4H PRN PRN Reason: Nausea/Vomiting Oxycodone/Acetaminophen (Acetaminophen/Oxycodone 325-5 Mg Tab) 1 tab PO Q4H PRN PRN Reason: Pain (severe 7-10) Oxycodone/Acetaminophen (Acetaminophen/Oxycodone 325-5 Mg Tab) 2 tab PO Q4H PRN PRN Reason: Pain (severe 7-10) Oxytocin (Oxytocin 10 Units/1 Ml Sdv) 10 unit IM ASDIRECTED PRN PRN Reason: Excessive Vaginal Bleeding Sodium Chloride (Sodium Chloride 0.9% 10 Ml Syringe) 10 ml FLUSH ASDIRECTED PRN PRN Reason: Keep Vein Open Sodium Chloride (Sodium Chloride 0.9% 2.5 Ml Syringe) 2.5 ml FLUSH ASDIRECTED PRN PRN Reason: Keep Vein Open Sodium Chloride (Sodium Chloride 0.9% 10 Ml Sdv) 10 ml IV ASDIRECTED PRN PRN Reason: IV Use Discontinued Medications Citric Acid/Sodium Citrate (Citric Acid/Sodium Citrate Solution 30 Ml Cup) 30 ml PO ONETIME ONE Stop: 09/21/20 08:55 Fentanyl (Fentanyl 100 Mcg/2 Ml Sdv) Confirm Administered Dose 100 mcg .ROUTE .STK-MED ONE Stop: 09/21/20 10:10 Cefazolin Sodium/Dextrose 2 gm (/ Premix) 50 mls @ 100 mls/hr IV ONETIME ONE Stop: 09/21/20 10:18 Cefazolin Sodium/Dextrose 3 gm (/ Premix) 75 mls @ 150 mls/hr IV ONETIME ONE Stop: 09/21/20 10:18 Ketorolac Tromethamine (Ketorolac 30 Mg/Ml Sdv) Confirm Administered Dose 30 mg .ROUTE .STK-MED ONE Stop: 09/21/20 10:34 Morphine Sulfate (Morphine Pf 10 Mg/10 Ml Sdv) Confirm Administered Dose 10 mg .ROUTE .STK-MED ONE Stop: 09/21/20 10:10 Octyl Cyanoacrylate (Octyl 2-Cyanoacrylate 1 Tube) Confirm Administered Dose 1 applic .ROUTE .STK-MED ONE Stop: 09/21/20 09:55 Ondansetron HCl (Ondansetron 4 Mg/2 Ml Sdv) Confirm Administered Dose 4 mg .ROUTE .STK-MED ONE Stop: 09/21/20 10:34 Oxytocin (Oxytocin 10 Units/1 Ml Sdv) Confirm Administered Dose 30 unit .ROUTE .STK-MED ONE Stop: 09/21/20 10:34
--- NOTE | 2020-09-21 12:07 | PCM.POSTAN ---
POST ANESTHESIA ASSESSMENT - MENTAL STATUS Mental Status: Alert, Oriented - RESPIRATORY Respiratory Status: Respiratory Rate WNL, Airway Patent, O2 Saturation Stable - CARDIOVASCULAR CV Status: Pulse Rate WNL, Blood Pressure Stable - GASTROINTESTINAL GI Status: No Symptoms - POST OP HYDRATION Hydration Status: Adequate & Stable
--- NOTE | 2020-09-21 12:08 | PCM48HPAN ---
Post Anesthesia Note - EVALUATION WITHIN 48HRS OF ANESTHETIC Vital Signs in Normal Range: Yes Patient Participated in Evaluation: Yes Respiratory Function Stable: Yes Airway Patent: Yes Cardiovascular Function Stable: Yes Hydration Status Stable: Yes Pain Control Satisfactory: Yes Nausea and Vomiting Control Satisfactory: Yes Mental Status Recovered: Yes
--- NOTE | 2020-09-21 12:41 | OR ---
SURGEON: Eliud Murcia MD DATE OF PROCEDURE: 09/21/2020 PREOPERATIVE DIAGNOSIS: Intrauterine at 39 weeks plus, previous section, admitted for elective repeat section. POSTOPERATIVE DIAGNOSIS: Intrauterine at 39 weeks plus, previous section, admitted for elective repeat section. OPERATION PERFORMED: Repeat low transverse section. PRIMARY SURGEON: Eliud Murcia MD SHOP FITTER: Karishma Rodriguez, certified nurse metal engraver. ANESTHESIA: Spinal. ESTIMATED BLOOD LOSS: 700 mL. COMPLICATIONS: None. FINDINGS: Viable male fetus. score reported to be 8 and 9. The weight is not available at the time of delivery. INDICATION FOR SURGERY: This patient is 30. She had a previous section. She is 39 plus weeks. She is admitted for elective repeat section. DESCRIPTION OF PROCEDURE: The patient was brought to the OR, properly identified, and after adequate level of spinal anesthesia with a Smith catheter in the bladder, the patient was prepped and draped in sterile fashion as usual. Low transverse Pfannenstiel skin incision done through the old scar. Essence's fascia and rectus fascia were opened in direction of the incision. The 2 recti muscles were and the peritoneal cavity was entered. Bladder flap was raised in the usual manner pushing the bladder away from the lower uterine segment. Low transverse uterine incision was done and extended manually with the hand. Fetus was in a vertex position, delivered without any problem, cried immediately. score reported 8 and 9 later on. The weight was not available. The placenta delivered spontaneous, complete, and intact, and then repair of the lower uterine segment done with 2-0 Vicryl continuous interlocking in 2 layers. Reperitonealization done with 3-0 Vicryl continuous and then the peritoneal cavity evacuated completely from all blood and blood clot, and closed with 3-0 Vicryl continuous. The rectus fascia was closed with #1 PDS double strand continuous. Essence's fascia with 3-0 Vicryl continuous. The skin closed with 3- 0 Stratafix in a subcuticular fashion. A SHAHRIAR dressing was applied. The patient tolerated the procedure well, went to recovery room in stable general condition. TASHIA / SLAVA /[id number]
[2020-09-21] MEDS: Docusate Sodium 100 MG Cap PO SCH (20:25)
[2020-09-22] MEDS: Ketorolac 30 MG/ML SDV IVPUSH SCH ×2 (05:00→12:50)
--- NOTE | 2020-09-22 08:56 | PCM.PNPP ---
- General Info Date of Service: 09/22/20 Functional Status: Reports: Pain Controlled - Review of Systems General: Reports: No Symptoms HEENT: Reports: No Symptoms Pulmonary: Reports: No Symptoms Cardiovascular: Reports: No Symptoms Gastrointestinal: Reports: No Symptoms Genitourinary: Reports: No Symptoms Musculoskeletal: Reports: No Symptoms Skin: Reports: No Symptoms Neurological: Reports: No Symptoms Psychiatric: Reports: No Symptoms - Patient Data Vital Signs - Most Recent: Last Vital Signs Temp 36.1 C 09/22/20 08:22 Pulse 76 09/22/20 08:22 Resp 16 09/22/20 08:22 BP 114/59 L 09/22/20 08:22 Pulse Ox 98 09/22/20 08:22 Weight - Most Recent: 141.974 kg I&O - Last 24 Hours: Intake & Output 09/21/20 09/22/20 09/22/20 22:59 06:59 14:59 Intake Total 1800 Output Total 300 1200 Balance -300 600 Lab Results - Last 24 Hours: Laboratory Results - last 24 hr 09/21/20 09/21/20 09/22/20 Range/Units 08:35 08:35 04:50 WBC 12.95 H (4.0-11.0) K/uL RBC 4.55 (4.30-5.90) M/uL Hgb 13.1 11.5 L (12.0-16.0) g/dL Hct 38.7 34.2 L (36.0-46.0) % MCV 85.1 (80.0-98.0) fL MCH 28.8 (27.0-32.0) pg MCHC 33.9 (31.0-37.0) g/dL RDW Std Deviation 41.8 (28.0-62.0) fl RDW Coeff of Claudia 14 (11.0-15.0) % Plt Count 255 (150-400) K/uL MPV 10.40 (7.40-12.00) fL Nucleated RBC % 0.0 /100WBC Nucleated RBCs # 0 K/uL Blood Type O POSITIVE Antibody Screen NEGATIVE Med Orders - Current: Current Medications Bisacodyl (Bisacodyl 10 Mg Supp) 10 mg RECTAL ONETIME PRN PRN Reason: Constipation Diphenhydramine HCl (Diphenhydramine 50 Mg/Ml Sdv) 25 mg IVPUSH Q6H PRN PRN Reason: Itching or Nausea Last Admin: 09/21/20 12:56 Dose: 25 mg Documented by: Docusate Sodium (Docusate Sodium 100 Mg Cap) 100 mg PO BID [facility] Last Admin: 09/21/20 20:25 Dose: 100 mg Documented by: Emollient Ointment (Lanolin 100% Cream 7 Gm Tube) 0 gm TOP ASDIRECTED PRN PRN Reason: Sore Nipples Oxytocin/Sodium Chloride (Oxytocin 30 Unit/500 Ml-Ns) 30 unit in 500 mls @ 250 mls/hr IV TITRATE [facility] Lactated Ringer's (Ringers, Lactated) 1,000 mls @ 500 mls/hr IV BOLUS [facility] Last Admin: 09/21/20 09:31 Dose: 500 mls/hr Documented by: Lactated Ringer's (Ringers, Lactated) 1,000 mls @ 125 mls/hr IV ASDIRECTED [facility] Last Admin: 09/21/20 15:30 Dose: 125 mls/hr Documented by: Tranexamic Acid 1,000 mg/ (Sodium Chloride) 110 mls @ 660 mls/hr IV ONETIME PRN PRN Reason: Bleeding Ibuprofen (Ibuprofen 800 Mg Tab) 800 mg PO Q8H PRN PRN Reason: mild pain or fever Ketorolac Tromethamine (Ketorolac 30 Mg/Ml Sdv) 30 mg IVPUSH Q6H [facility] Stop: 09/22/20 11:01 Last Admin: 09/22/20 05:00 Dose: 30 mg Documented by: Methylergonovine Maleate (Methylergonovine 0.2 Mg/1 Ml Amp) 0.2 mg IM ONETIME PRN PRN Reason: Excessive Vaginal Bleeding Misoprostol (Misoprostol 200 Mcg Tab) 1,000 mcg RECTAL ONETIME PRN PRN Reason: excessive bleeding Ondansetron HCl (Ondansetron 4 Mg/2 Ml Sdv) 4 mg IVPUSH Q4H PRN PRN Reason: Nausea/Vomiting Last Admin: 09/21/20 20:25 Dose: 4 mg Documented by: Oxycodone/Acetaminophen (Acetaminophen/Oxycodone 325-5 Mg Tab) 1 tab PO Q4H PRN PRN Reason: Pain (severe 7-10) Oxycodone/Acetaminophen (Acetaminophen/Oxycodone 325-5 Mg Tab) 2 tab PO Q4H PRN PRN Reason: Pain (severe 7-10) Oxytocin (Oxytocin 10 Units/1 Ml Sdv) 10 unit IM ASDIRECTED PRN PRN Reason: Excessive Vaginal Bleeding Sodium Chloride (Sodium Chloride 0.9% 10 Ml Syringe) 10 ml FLUSH ASDIRECTED PRN PRN Reason: Keep Vein Open Sodium Chloride (Sodium Chloride 0.9% 2.5 Ml Syringe) 2.5 ml FLUSH ASDIRECTED PRN PRN Reason: Keep Vein Open Sodium Chloride (Sodium Chloride 0.9% 10 Ml Sdv) 10 ml IV ASDIRECTED PRN PRN Reason: IV Use Discontinued Medications Citric Acid/Sodium Citrate (Citric Acid/Sodium Citrate Solution 30 Ml Cup) 30 ml PO ONETIME ONE Stop: 09/21/20 08:55 Fentanyl (Fentanyl 100 Mcg/2 Ml Sdv) Confirm Administered Dose 100 mcg .ROUTE .STK-MED ONE Stop: 09/21/20 10:10 Cefazolin Sodium/Dextrose 2 gm (/ Premix) 50 mls @ 100 mls/hr IV ONETIME ONE Stop: 09/21/20 10:18 Cefazolin Sodium/Dextrose 3 gm (/ Premix) 75 mls @ 150 mls/hr IV ONETIME ONE Stop: 09/21/20 10:18 Ketorolac Tromethamine (Ketorolac 30 Mg/Ml Sdv) Confirm Administered Dose 30 mg .ROUTE .STK-MED ONE Stop: 09/21/20 10:34 Morphine Sulfate (Morphine Pf 10 Mg/10 Ml Sdv) Confirm Administered Dose 10 mg .ROUTE .STK-MED ONE Stop: 09/21/20 10:10 Octyl Cyanoacrylate (Octyl 2-Cyanoacrylate 1 Tube) Confirm Administered Dose 1 applic .ROUTE .STK-MED ONE Stop: 09/21/20 09:55 Ondansetron HCl (Ondansetron 4 Mg/2 Ml Sdv) Confirm Administered Dose 4 mg .ROUTE .STK-MED ONE Stop: 09/21/20 10:34 Oxytocin (Oxytocin 10 Units/1 Ml Sdv) Confirm Administered Dose 30 unit .ROUTE .STK-MED ONE Stop: 09/21/20 10:34 - Infant Interaction Infant Disposition, : [place] in Room with Family Infant Interaction: Holding Infant Feeding: Attempted ; Nursed Fair/Poor Support Person: - Recovery Exam Fundal Tone: Firm Fundal Level: At Umbilicus Fundal Placement: Midline Lochia Amount: Scant Lochia Color: Rubra/Red Bladder Status: Indwelling Catheter in Place - Exam General: Alert, Oriented HEENT: Pupils Equal Neck: Supple Lungs: Clear to Auscultation, Normal Respiratory Effort Cardiovascular: Regular Rate, Regular Rhythm GI/Abdominal Exam: Normal Bowel Sounds, Soft, Non-Tender, No Organomegaly, No Distention, No Abnormal Bruit, No Mass, Pelvis Stable Extremities: Normal Inspection, Normal Range of Motion, Non-Tender, No Pedal Edema, Normal Capillary Refill Skin: Warm, Dry, Intact Wound/Incisions: Healing Well Neurological: No New Focal Deficit Psy/Mental Status: Alert, Normal Affect, Normal Mood - Problem List Review Problem List Initiated/Reviewed/Updated: Yes - My Orders Last 24 Hours: My Active Orders 09/21/20 08:20 Notify Provider Vital Signs [RC] PRN 09/21/20 08:35 RPR (SYPHILIS SERO) W/ RFLX [REF] Routine 09/21/20 08:54 Up ad Steph [RC] ASDIRECTED Verify Patient Consent Obtain [RC] ASDIRECTED Vital Signs [RC] PER UNIT ROUTINE Sodium Chloride 0.9% [Normal Saline] 10 ml IV ASDIRECTED PRN Sodium Chloride 0.9% [Saline Flush] 10 ml FLUSH ASDIRECTED PRN Sodium Chloride 0.9% [Saline Flush] 2.5 ml FLUSH ASDIRECTED PRN Peripheral IV Insertion Adult [OM.PC] Routine Schedule Procedure [COMM] Per Unit Routine Resuscitation Status Routine 09/21/20 09:00 Lactated Ringers [Ringers, Lactated] 1,000 ml IV BOLUS Oxytocin/0.9 % Sodium Chloride [Oxytocin 30 Unit/500 ML-NS] 30 unit in 500 ml IV TITRATE 09/21/20 10:58 Patient Status [ADT] Routine Ambulate [RC] PER UNIT ROUTINE Antiembolic Devices [RC] PER UNIT ROUTINE Communication Order [RC] PER UNIT ROUTINE Communication Order [RC] PER UNIT ROUTINE Communication Order [RC] Per Unit Routine May Shower [RC] ASDIRECTED RT Incentive Spirometry [RC] Q2HWA Vital Signs [RC] Q1H Acetaminophen/oxyCODONE [Percocet 325-5 MG] 1 tab PO Q4H PRN Acetaminophen/oxyCODONE [Percocet 325-5 MG] 2 tab PO Q4H PRN Ibuprofen [Motrin] 800 mg PO Q8H PRN Lanolin [Lansinoh HPA] See Dose Instructions TOP ASDIRECTED PRN Methylergonovine [Methergine] 0.2 mg IM ONETIME PRN Ondansetron [Zofran] 4 mg IVPUSH Q4H PRN Oxytocin [Pitocin] 10 unit IM ASDIRECTED PRN Tranexamic Acid [Cyklokapron] 1,000 mg Sodium Chloride 0.9% [Normal Saline] 100 ml IV ONETIME bisacodyL [Dulcolax] 10 mg RECTAL ONETIME PRN diphenhydrAMINE [Benadryl] 25 mg IVPUSH Q6H PRN miSOPROStoL [Cytotec] 1,000 mcg RECTAL ONETIME PRN Assess Lochia [WOMSER] Per Unit Routine Assess Uterine Involution [WOMSER] Per Unit Routine Breast Pump [WOMSER] Per Unit Routine Peripheral IV Discontinue [OM.PC] Routine Sequential Compression Device [OM.PC] Per Unit Routine 09/21/20 11:00 Ketorolac [Toradol] 30 mg IVPUSH Q6H Lactated Ringers [Ringers, Lactated] 1,000 ml IV ASDIRECTED 09/21/20 21:00 Docusate Sodium [Colace] 100 mg PO BID - Assessment Assessment:: Repeat section postoperative day #1 the patient is ambulatory on regular diet she is passing gas she have minimum vaginal bleeding she is voiding without any problem. Patient is under control the patient expressed her desire to be discharged merely if it's possible we will check with the pediatric care and will probably discharge this patient sometime this afternoon - Plan Plan:: Term admitted for elective repeat C/section.
[2020-09-22] MEDS: Docusate Sodium 100 MG Cap PO SCH (08:57)
--- NOTE | 2020-09-22 12:48 | PCM.DCSUM1 ---
Discharge Summary - Hospital Course Diagnosis: Stroke: No - Discharge Data Discharge Date: 09/22/20 Discharge Disposition: Home, Self-Care 01 Condition: Good - Referral to Home Health Primary Care Physician: Eliud Murcia MD - Patient Summary/Data Operative Procedure(s) Performed: Repeat C/section. - Patient Instructions Diet: Usual Diet as Tolerated Driving: May Drive Today Showering/Bathing: May Shower Notify Provider of: Fever, Increased Pain, Swelling and Redness, Drainage, Nausea and/or Vomiting - Discharge Plan Home Medications: Home Meds Calcium Carbonate [Tums] 1 tab.chew CHEW ASDIRECTED PRN 09/15/20 [History] Fish Oil/[place]-3 Fatty Acids [Fish Oil 1,000 MG] 1 tab PO DAILY 09/15/20 [History] Pnv No.95/Ferrous Fum/Folic AC [ Vitamin Tablet] 1 tab PO DAILY 09/15/20 [History] - Discharge Summary/Plan Comment DC Time >30 min.: Yes - General Info Date of Service: 09/22/20 Functional Status: Reports: Pain Controlled - Review of Systems General: Reports: No Symptoms HEENT: Reports: No Symptoms Pulmonary: Reports: No Symptoms Cardiovascular: Reports: No Symptoms Gastrointestinal: Reports: No Symptoms Genitourinary: Reports: No Symptoms Musculoskeletal: Reports: No Symptoms Skin: Reports: No Symptoms Neurological: Reports: No Symptoms Psychiatric: Reports: No Symptoms - Patient Data Vitals - Most Recent: Last Vital Signs Temp 36.3 C 09/22/20 12:11 Pulse 75 09/22/20 12:11 Resp 16 09/22/20 12:11 BP 127/65 09/22/20 12:11 Pulse Ox 96 09/22/20 12:11 Weight - Most Recent: 141.974 kg I&O - Last 24 hours: Intake & Output 09/21/20 09/22/20 09/22/20 22:59 06:59 14:59 Intake Total 1800 Output Total 300 1200 Balance -300 600 Lab Results - Last 24 hrs: Laboratory Results - last 24 hr 09/22/20 Range/Units 04:50 Hgb 11.5 L (12.0-16.0) g/dL Hct 34.2 L (36.0-46.0) % Med Orders - Current: Current Medications Bisacodyl (Bisacodyl 10 Mg Supp) 10 mg RECTAL ONETIME PRN PRN Reason: Constipation Diphenhydramine HCl (Diphenhydramine 50 Mg/Ml Sdv) 25 mg IVPUSH Q6H PRN PRN Reason: Itching or Nausea Last Admin: 09/21/20 12:56 Dose: 25 mg Documented by: Docusate Sodium (Docusate Sodium 100 Mg Cap) 100 mg PO BID [facility] Last Admin: 09/22/20 08:57 Dose: 100 mg Documented by: Emollient Ointment (Lanolin 100% Cream 7 Gm Tube) 0 gm TOP ASDIRECTED PRN PRN Reason: Sore Nipples Oxytocin/Sodium Chloride (Oxytocin 30 Unit/500 Ml-Ns) 30 unit in 500 mls @ 250 mls/hr IV TITRATE [facility] Lactated Ringer's (Ringers, Lactated) 1,000 mls @ 500 mls/hr IV BOLUS [facility] Last Admin: 09/21/20 09:31 Dose: 500 mls/hr Documented by: Lactated Ringer's (Ringers, Lactated) 1,000 mls @ 125 mls/hr IV ASDIRECTED [facility] Last Admin: 09/21/20 15:30 Dose: 125 mls/hr Documented by: Tranexamic Acid 1,000 mg/ (Sodium Chloride) 110 mls @ 660 mls/hr IV ONETIME PRN PRN Reason: Bleeding Ibuprofen (Ibuprofen 800 Mg Tab) 800 mg PO Q8H PRN PRN Reason: mild pain or fever Methylergonovine Maleate (Methylergonovine 0.2 Mg/1 Ml Amp) 0.2 mg IM ONETIME PRN PRN Reason: Excessive Vaginal Bleeding Misoprostol (Misoprostol 200 Mcg Tab) 1,000 mcg RECTAL ONETIME PRN PRN Reason: excessive bleeding Ondansetron HCl (Ondansetron 4 Mg/2 Ml Sdv) 4 mg IVPUSH Q4H PRN PRN Reason: Nausea/Vomiting Last Admin: 09/21/20 20:25 Dose: 4 mg Documented by: Oxycodone/Acetaminophen (Acetaminophen/Oxycodone 325-5 Mg Tab) 1 tab PO Q4H PRN PRN Reason: Pain (severe 7-10) Oxycodone/Acetaminophen (Acetaminophen/Oxycodone 325-5 Mg Tab) 2 tab PO Q4H PRN PRN Reason: Pain (severe 7-10) Last Admin: 09/22/20 10:44 Dose: 2 tab Documented by: Oxytocin (Oxytocin 10 Units/1 Ml Sdv) 10 unit IM ASDIRECTED PRN PRN Reason: Excessive Vaginal Bleeding Sodium Chloride (Sodium Chloride 0.9% 10 Ml Syringe) 10 ml FLUSH ASDIRECTED PRN PRN Reason: Keep Vein Open Sodium Chloride (Sodium Chloride 0.9% 2.5 Ml Syringe) 2.5 ml FLUSH ASDIRECTED PRN PRN Reason: Keep Vein Open Sodium Chloride (Sodium Chloride 0.9% 10 Ml Sdv) 10 ml IV ASDIRECTED PRN PRN Reason: IV Use Discontinued Medications Citric Acid/Sodium Citrate (Citric Acid/Sodium Citrate Solution 30 Ml Cup) 30 ml PO ONETIME ONE Stop: 09/21/20 08:55 Fentanyl (Fentanyl 100 Mcg/2 Ml Sdv) Confirm Administered Dose 100 mcg .ROUTE .STK-MED ONE Stop: 09/21/20 10:10 Cefazolin Sodium/Dextrose 2 gm (/ Premix) 50 mls @ 100 mls/hr IV ONETIME ONE Stop: 09/21/20 10:18 Cefazolin Sodium/Dextrose 3 gm (/ Premix) 75 mls @ 150 mls/hr IV ONETIME ONE Stop: 09/21/20 10:18 Ketorolac Tromethamine (Ketorolac 30 Mg/Ml Sdv) Confirm Administered Dose 30 mg .ROUTE .STK-MED ONE Stop: 09/21/20 10:34 Ketorolac Tromethamine (Ketorolac 30 Mg/Ml Sdv) 30 mg IVPUSH Q6H [facility] Stop: 09/22/20 11:01 Last Admin: 09/22/20 05:00 Dose: 30 mg Documented by: Morphine Sulfate (Morphine Pf 10 Mg/10 Ml Sdv) Confirm Administered Dose 10 mg .ROUTE .STK-MED ONE Stop: 09/21/20 10:10 Octyl Cyanoacrylate (Octyl 2-Cyanoacrylate 1 Tube) Confirm Administered Dose 1 applic .ROUTE .STK-MED ONE Stop: 09/21/20 09:55 Ondansetron HCl (Ondansetron 4 Mg/2 Ml Sdv) Confirm Administered Dose 4 mg .[place] .STK-MED ONE Stop: 09/21/20 10:34 Oxytocin (Oxytocin 10 Units/1 Ml Sdv) Confirm Administered Dose 30 unit .ROUTE .STK-MED ONE Stop: 09/21/20 10:34 - Exam General: Reports: Alert, Oriented HEENT: Reports: Pupils Equal, Pupils Reactive, EOMI, Mucous Membr. Moist/[place] Neck: Reports: Supple Lungs: Reports: Clear to Auscultation, Normal Respiratory Effort Cardiovascular: Reports: Regular Rate, Regular Rhythm GI/Abdominal Exam: Normal Bowel Sounds, Soft, Non-Tender, No Organomegaly, No Distention, No Abnormal Bruit, No Mass, Pelvis Stable (Female) Exam: Normal External Exam, Normal Speculum Exam, Normal Bimanual Exam Rectal (Female) Exam: Normal Exam, Normal Rectal Tone Back Exam: Reports: Normal Inspection, Full Range of Motion Extremities: Normal Inspection, Normal Range of Motion, Non-Tender, No Pedal Edema, Normal Capillary Refill Skin: Reports: Warm, Dry, Intact Wound/Incisions: Reports: Healing Well Neurological: Reports: No New Focal Deficit Psy/Mental Status: Reports: Alert, Normal Affect, Normal Mood
== END 2020-09-22 14:52 | disposition home or self-care (01) | DRG 540 ==
LOC: MW.OB 08:20
PROVIDERS: ADMIT Obstetrics & Gynecology; ATTEND Obstetrics & Gynecology
PROC: 10D00Z1 Extraction of Products of Conception, Low, Open Approach (ICD-10-PCS; principal; 2020-09-21)
DX: O34.211 Maternal care for low transverse scar from previous cesarean delivery (principal); Z37.0 Single live birth; Z3A.39 39 weeks gestation of pregnancy
CPT/HCPCS: 36415; 59025; 85014; 85018; 85027; 86592; 86850; 86900; 86901; A9270-GY; J1200; J1885; J2270; J2405; J2590; J3010; J7120